=== PATIENT | female | born 1950 | race Caucasian/White ===

== ENCOUNTER 2023-06-26 20:03 | Emergency (ER) | payer MEDICARE, SELFPAY ==
[2023-06-26 20:19] VITALS: BP 165/87
[2023-06-26] MEDS: NORCO 5/325 1 TABLET PO (21:18)
[2023-06-26 21:25] LABS: % Basophils 0.7 % (0-2); % Eosinophils 0.2 % (0-6); % Immature Granulocytes 0.2 % (0-0.5); % Lymphocytes 17.2 % (20.5-51.1); % Monocytes 1.3 % (1.7-9.3); % Neutrophils 80.4 % (42.2-75.2); Absolute Lymphocytes 0.9 10^3/uL (1.2-3.4); Absolute Monocytes 0.1 10^3/uL (0.1-0.6); Absolute Neutrophils 4.4 10^3/uL (1.4-6.5); Hematocrit 39.8 % (37.0-47.0); Hemoglobin 13.8 g/dL (12.0-16.0); Mean Corp Hgb Conc. 34.7 g/dL (33.0-37.0); Mean Corpuscular Hgb 31.7 pg (27.0-31.0); Mean Corpuscular Volume 91.3 fL (81.0-99.0); Nucleated Red Blood Cells % 0 %; Platelet Count 249 10^3/uL (130-400); Red Blood Cell Count 4.36 10^6/uL (4.20-5.40); Red Cell Dist. Width 12.8 % (11.5-14.5); White Blood Cell Count 5.5 10^3/uL (4.8-10.8)
[2023-06-26 21:48] LABS: Blood Urea Nitrogen 31 mg/dl (7-17); Calcium 9.8 mg/dl (8.4-10.2); Carbon Dioxide 23 mmol/L (22-30); Chloride 104 mmol/L (98-107); Glucose 161 mg/dl (70-99); Sodium 133 mmol/L (135-145); eGFR > 60.00
[2023-06-26 22:38] LABS: ALT (SGPT) 35 U/L (0-35); AST (SGOT) 34 U/L (14-36); Albumin 4.5 g/dl (3.5-5.0); Alkaline Phosphatase 103 U/L (38-126); Blood Urea Nitrogen 29 mg/dl (7-17); Calcium 9.8 mg/dl (8.4-10.2); Carbon Dioxide 24 mmol/L (22-30); Chloride 104 mmol/L (98-107); Glucose 151 mg/dl (70-99); Potassium 4.6 mmol/L (3.5-5.1); Sodium 131 mmol/L (135-145); Total Bilirubin 0.4 mg/dl (0.2-1.3); Total Protein 7.2 g/dl (6.3-8.2); eGFR > 60.00
--- NOTE | 2023-06-26 23:07 | ED.MUSCINJ ---
HPI-Injury
General
Chief Complaint: Musculo-Skeletal Complaint
Source: patient
Exam Limitations: none
Time Seen by Provider: 06/26/23 20:31
Nursing documentation reviewed up to this point in time: agreed with
Travel History
Have you had any contact with someone who has COVID-19?: No
Do you have any symptoms of coronavirus? Fever > 100 degrees, chills, cough, shortness of breath, sore throat, loss of taste or smell, muscle aches, or headache?: No
History of Present Illness-Injury
Is this injury a work related problem?: No
Is pt an associate of [facility]?: No
Initial Injury comments:
Patient to ED with complaint of right medial ankle pain. SHe fx her ankle in Dec requiring ORIF. States over the past few weeks the pain is worsening. Denies fever/chills. Reports ankle looks red at times, feels hot. Brought to ED by family for
eval.
Past History
Past History
ED Past Medical History: None and Other (Previous Lyme's disease)
ED Past Surgical History: None
Social History
Tobacco: Non-smoker
Alcohol: None
Family History
Family History: Negative Diabetes
Review of Systems
Review of Systems
Allergies reviewed?: Yes
All Other Systems: ROS reviewed and negative except as documented in HPI and ROS
Constitutional: Reports no symptoms
EENT: Reports no symptoms
Respiratory: Reports no symptoms
Cardiac: Reports no symptoms
ABD/GI: Reports no symptoms
Musculoskeletal: Reports joint pain (Right medial ankle pain)
Skin: Reports no symptoms
Neurological: Reports no symptoms
Psychiatric: Reports no symptoms
Musculoskeletal Injury Exam
Musculoskeletal Injury Exam
Right Medial Ankle:
Pain with Movement?: Moderate
Tender to palpation?: Moderate
Soft tissue swelling?: None
External deformity and angulation?: None
Joint effusion?: None
Contusion?: None
Hematoma-local bleeding into tissue?: None
Strain- Sprain- Tear (Connective tissue injury)?: None
Crepitus with movement?: No
Joint instability?: No
Malalignment/deformity?: No
Range of motion: Full
Distal skin color and temperature: normal-warm & good color
Capillary Refill: normal
Normal distal neurovascular exam?: Yes
Peripheral Pulses: posterior tibial (right): 3+ and dorsalis pedis (right): 3+
Phy Exam
General Physical Exam
General Presentation: well appearing and no apparent distress
General age: appears stated age
General Skin: warm and dry
General Habitus: normal
General Mental: alert
Musculoskeletal Exam
Musculoskeletal Exam: full ROM, neuro vasc intact and other (No erythema or swelling of foot/ankle)
Skin Exam
Skin Exam: normal color, warm/dry and no rash
Psychiatric Exam
Psychiatric Exam: normal mood/affect
Injury Course
Orders/Labs/Results
Orders:
Orders
06/26/23 21:01
Ankle, Right 3 view CR [CR Ankle - Right Min 3 Views *] Urgent
Comment:
Reason For Exam: medial pain
Periph Venous Lwr Ext Rt US [US Periph Venous LOWER Ext RT] Urgent
Comment:
Reason For Exam: ankle to calf pain
06/26/23 21:03
Hydrocodone 5/APAP 325 [[place] 5/325] 1 tablet PO NOW STA
06/26/23 21:20
Basic Metabolic Panel Urgent
Complete Blood Count/With Diff Urgent
06/26/23 22:19
Comprehensive Metabolic Panel Urgent
Abnormal Lab Results
06/26/23 06/26/23
21:20 22:19
MCH 31.7 H pg
(27.0-31.0)
Absolute Lymphs (auto) 0.9 L 10^3/uL
(1.2-3.4)
Neutrophils % 80.4 H %
(42.2-75.2)
Lymphocytes % 17.2 L %
(20.5-51.1)
Monocytes % 1.3 L %
(1.7-9.3)
Sodium 133 L mmol/L 131 L mmol/L
(135-145) (135-145)
BUN 31 H mg/dl 29 H mg/dl
(7-17) (7-17)
Glucose 161 H mg/dl 151 H mg/dl
(70-99) (70-99)
06/26/23 21:20
06/26/23 22:19
*Radiology
Radiology exam reviewed: radiology read reviewed
*Pulse Oximetry
Patient hypoxic: no
*Critical Care Note
Total Time (30-74mins, 75-104mins- exclusive of procedures): Not Applicable
ED Attending Note
-
Portions of this chart may have been created with voice recognition software.� Occasional wrong word or��sound alike� substitutions may have occurred due to the inherent limitations of voice recognition software.
Discharge Plan
Departure
Patient Disposition: Home (Routine Discharge)
Date of Disposition: 06/26/23
Time of Disposition: 22:57
Patient with high blood pressure during this ER visit?: No
Condition: Good
Covid-19: Not Applicable
Discharge Problem:
Ankle pain
Instructions: Muscle and Bone Pain (DC), Ibuprofen, Using Cold for Pain
Prescriptions:
New
hydrocodone-acetaminophen 5-325 mg tablet
1 tab PO Q4H PRN (Reason: Pain) Qty: 10 0RF
No Action
ascorbic acid (vitamin C) [Vitamin C] 1,000 MG tablet
1,000 mg PO DAILY
cyanocobalamin (vitamin B-12) 1,000 MCG tablet
1,000 mcg PO DAILY
docosahexaenoic acid-epa 1 EACH capsule
1,200 mg PO DAILY
paroxetine HCl 30 MG tablet
30 mg PO DAILY
zolpidem 10 MG tablet
10 mg PO HS
calcium carbonate-vitamin D3 [Calcium 600 + D(3)] 1 EACH tablet
1 ea PO DAILY
docusate sodium 100 MG capsule
200 mg PO DAILY
atorvastatin 40 MG tablet
40 mg PO QPM Qty: 30 0RF
aspirin 81 MG tablet,chewable
81 mg PO DAILY 0RF
Referrals:
Joaquina Perez MD [Family Provider] -
Eliseo Champion MD [Active] - Keep scheduled appt
Interventions
Interventions:
*Risk Screen - Suicide Last Done: 06/26/23 20:19
*General Assessment Last Done: 06/26/23 20:19
*Neglect/Abuse Screening Last Done: 06/26/23 20:19
Discharge Date and Time
Print Language: KYRGYZ
== END 2023-06-26 23:39 | disposition home or self-care (01) ==
LOC: EMR 20:03
PROVIDERS: Nurse Practitioner; EMERGENCY PHYSICIAN Emergency Medicine; FAMILY PHYSICIAN Internal Medicine
DX: M25.571 Pain in right ankle and joints of right foot (principal); R22.41 Localized swelling, mass and lump, right lower limb
CPT/HCPCS: 99285; 73610; 80048; 80053; 85025; 93971

== ENCOUNTER 2023-10-10 11:42 | Emergency (ER) | payer MEDICARE, SELFPAY ==
[2023-10-10 11:45] VITALS: BP 147/83
[2023-10-10 11:55] VITALS: BMI 38.0
[2023-10-10 12:01] VITALS: BP 150/68
[2023-10-10 12:05] VITALS: BP 150/67
--- NOTE | 2023-10-10 12:08 | ED.GENMED ---
History of Present Illness
General
Chief Complaint: Abdominal Pain
Source: patient and family (son)
Time Seen by Provider: 10/10/23 11:57
History of Present Illness
History of Present Illness:
73-year-old female presents to the emergency room complaining of abdominal pain. Patient noted some mild abdominal pain on and off for the past month or so. However the pain would not last long it would go away completely. However over the past 3
days she has had pain that has been constant and increasing in severity. She denies nausea or vomiting. She has had some loose stools. She denies any blood or mucus in the stool. No fever or chills. Patient has history of a appendectomy at the
age of 15. She had some sort of hernia repair as an infant. She is also had a .
Past History
Past History
ED Past Medical History: None and Other (Previous Lyme's disease)
ED Past Surgical History: None
Social History
Tobacco: Non-smoker
Alcohol: None
Family History
Family History: Negative Diabetes
Phy Exam
Physical Exam
Physical Exam:
General: Awake, Alert, Oriented X3. Appears uncomfortable
Vitals: unremarkable
Head: Atraumatic
Eyes: Pupils equal, EOMI
Throat: Airway intact, no exudates
Neck: Trachea midline
Lungs: Clear and equal b/l
Heart: Regular rate, no murmurs
Abd: Soft, tender to palpation bilateral lower abdominal quadrants, No pulsatile mass
Neuro: Nonfocal
Skin: Warm, dry, no rash
Extremities: pulses equal b/l, no edema
Course
Orders/Labs/Results
Orders:
Orders
10/10/23 11:59
Basic Metabolic Panel Urgent
Complete Blood Count/With Diff Urgent
Lipase Urgent
Urinalysis Reflex To Culture Urgent
Date Specimen was Collected: 10/10/23
Time Specimen was Collected: 11:53
10/10/23 12:07
CT Abd/Pel (IV only)-DH only Urgent
Comment:
Reason For Exam: lower abd pain
0.9% Sodium Chloride 1000 ml [Nss] 1,000 ml IV BOLUS
HYDROmorphone [Dilaudid] 1 mg IV NOW STA
Ondansetron Injectable [Zofran] 4 mg IV NOW STA
10/10/23 15:18
LevoFLOXacin [Levaquin] 750 mg PO NOW STA
MetroNIDAZOLE [Flagyl] 500 mg PO NOW STA
Abnormal Lab Results
10/10/23
11:59
MCH 31.6 H pg
(27.0-31.0)
Absolute Neuts (auto) 6.9 H 10^3/uL
(1.4-6.5)
Absolute Lymphs (auto) 1.0 L 10^3/uL
(1.2-3.4)
Neutrophils % 80.4 H %
(42.2-75.2)
Lymphocytes % 11.3 L %
(20.5-51.1)
BUN 28 H mg/dl
(7-17)
10/10/23 11:59
10/10/23 11:59
Vital Signs
Initial and Last Documented VS:
Initial Vital Signs
Temp Pulse Resp BP Pulse Ox
99.1 F 86 18 147/83 100
10/10/23 11:45 10/10/23 11:45 10/10/23 11:45 10/10/23 11:45 10/10/23 11:45
Last Documented Vital Signs
Temp Pulse Resp BP Pulse Ox
99.1 F 82 16 120/60 94
10/10/23 11:45 10/10/23 14:00 10/10/23 14:00 10/10/23 15:00 10/10/23 15:00
MDM/Problems Addressed
Differential Diagnosis Includes:
diverticulitis, ibs, uti
MDM/Problems Addressed:
Patient presents with abdominal pain progressing for the past month. CT shows no acute abnormality. He will treat for presumptive diverticulitis. Recommend strongly she follow-up with gastroenterology. Contact information provided.
*Radiology
Radiology exam reviewed: radiology read reviewed
*Pulse Oximetry
Patient hypoxic: no
*Critical Care Note
Total Time (30-74mins, 75-104mins- exclusive of procedures): Not Applicable
ED Attending Note
-
Portions of this chart may have been created with voice recognition software.� Occasional wrong word or��sound alike� substitutions may have occurred due to the inherent limitations of voice recognition software.
Discharge Plan
Departure
Patient Disposition: Home (Routine Discharge)
Date of Disposition: 10/10/23
Time of Disposition: 15:19
Patient with high blood pressure during this ER visit?: No
Condition: Good
Discharge Problem:
Abdominal pain, Diverticulitis
Instructions: Diverticulitis (DC), Abdominal Pain
Prescriptions:
New
levofloxacin 750 mg tablet
750 mg PO DAILY 7 Days Qty: 7 0RF
metronidazole 500 mg tablet
500 mg PO TID Qty: 21 0RF
No Action
ascorbic acid (vitamin C) [Vitamin C] 1,000 MG tablet
1,000 mg PO DAILY
cyanocobalamin (vitamin B-12) 1,000 MCG tablet
1,000 mcg PO DAILY
docosahexaenoic acid-epa 1 EACH capsule
1,200 mg PO DAILY
paroxetine HCl 30 MG tablet
30 mg PO DAILY
zolpidem 10 MG tablet
10 mg PO HS
calcium carbonate-vitamin D3 [Calcium 600 + D(3)] 1 EACH tablet
1 ea PO DAILY
docusate sodium 100 MG capsule
200 mg PO DAILY
atorvastatin 40 MG tablet
40 mg PO QPM Qty: 30 0RF
aspirin 81 MG tablet,chewable
81 mg PO DAILY 0RF
hydrocodone-acetaminophen 5-325 mg tablet
1 tab PO Q4H PRN (Reason: Pain) Qty: 10 0RF
Referrals:
Joaquina Perez MD [Family Provider] -
Josefa Lu MD [Active] -
Interventions
Interventions:
*Risk Screen - Suicide Last Done: 10/10/23 11:45
*General Assessment Last Done: 10/10/23 11:45
*Neglect/Abuse Screening Last Done: 10/10/23 11:45
ED- Fall Risk Assessment Last Done: 10/10/23 12:05
*ED COVID-19 Vaccine History Last Done: 10/10/23 16:23
*Nursing Disposition Last Done: 10/10/23 16:23
QQ-Dpzflc-Qapquafccs Assessment Last Done: 10/10/23 12:06
Discharge Date and Time
Discharge Date/Time: 10/10/23 16:00
Print Language: FRISIAN
[2023-10-10 12:14] LABS: Urine Albumin Negative (Neg - Trace); Urine Bilirubin Negative (Negative); Urine Character Clear (Clear); Urine Color Yellow; Urine Glucose Negative (Negative); Urine Ketone Negative (Negative); Urine Leukocyte Negative (Negative); Urine Nitrite Negative (Negative); Urine Occult Blood Negative (Negative); Urine Urobilinogen Negative (Neg - 1+)
[2023-10-10 12:18] LABS: % Basophils 0.8 % (0-2); % Eosinophils 1.3 % (0-6); % Immature Granulocytes 0.2 % (0-0.5); % Lymphocytes 11.3 % (20.5-51.1); % Neutrophils 80.4 % (42.2-75.2); Absolute Basophils 0.1 10^3/uL (0-0.2); Absolute Eosinophils 0.1 10^3/uL (0-0.7); Absolute Monocytes 0.5 10^3/uL (0.1-0.6); Absolute Neutrophils 6.9 10^3/uL (1.4-6.5); Hematocrit 42.1 % (37.0-47.0); Hemoglobin 14.2 g/dL (12.0-16.0); Mean Corp Hgb Conc. 33.7 g/dL (33.0-37.0); Mean Corpuscular Hgb 31.6 pg (27.0-31.0); Mean Corpuscular Volume 93.8 fL (81.0-99.0); Mean Platelet Volume 10.3 fL (7.4-10.4); Nucleated Red Blood Cells % 0 %; Platelet Count 243 10^3/uL (130-400); Red Blood Cell Count 4.49 10^6/uL (4.20-5.40); Red Cell Dist. Width 13.1 % (11.5-14.5); White Blood Cell Count 8.6 10^3/uL (4.8-10.8)
[2023-10-10] MEDS: DILAUDID 1 MG IV (12:21)
[2023-10-10] MEDS: ZOFRAN 4 MG IV (12:21)
[2023-10-10] MEDS: NSS 1000 IV (12:22)
[2023-10-10 12:42] LABS: Blood Urea Nitrogen 28 mg/dl (7-17); Calcium 9.3 mg/dl (8.4-10.2); Carbon Dioxide 27 mmol/L (22-30); Chloride 105 mmol/L (98-107); Estimated Creatinine Clearance 94 ml/min; Glucose 94 mg/dl (70-99); Lipase 74 U/L (23-300); Sodium 138 mmol/L (135-145); eGFR > 60.00
[2023-10-10 13:00] VITALS: BP 141/78
[2023-10-10 14:04] VITALS: BP 132/66
[2023-10-10 15:00] VITALS: BP 120/60
[2023-10-10] MEDS: LEVAQUIN 750 MG PO (15:39)
[2023-10-10] MEDS: FLAGYL 500 MG PO (15:39)
== END 2023-10-10 16:00 | disposition home or self-care (01) ==
LOC: EMR 11:42
PROVIDERS: EMERGENCY PHYSICIAN Emergency Medicine; FAMILY PHYSICIAN Internal Medicine
DX: K57.92 Diverticulitis of intestine, part unspecified, without perforation or abscess without bleeding (principal); R10.9 Unspecified abdominal pain
CPT/HCPCS: 99285; 96374; 96375; 96361; 74177; 80048; 81003; 83690; 85025; Q9967

== ENCOUNTER 2023-10-11 02:26 | Observation (INO) | payer MEDICARE, SELFPAY ==
[2023-10-10 22:44] VITALS: BP 144/75
--- NOTE | 2023-10-10 22:55 | ED.GENMED ---
History of Present Illness
General
Chief Complaint: Abdominal Pain
Time Seen by Provider: 10/10/23 22:55
History of Present Illness
History of Present Illness:
HPI: The patient was seen here earlier in the day for abdominal pain with nausea and vomiting. She returns due to intractable vomiting. The pain is primarily in the lower abdomen. She does not have pain in the upper abdomen. She has been having
abdominal pain for the last few weeks. More recently she has been having vomiting and earlier in the day she had 4 episodes of diarrhea. She currently does not have diarrhea. She says that the pain is now 'all over'. She was prescribed
Levaquin/Flagyl and was given an oral dose prior to discharge but did not get the medication filled.
EXAM:
GENERAL: The patient appears somewhat generally weak and debilitated and in mild distress
HEENT: Moist oral mucosa
CARDIOVASCULAR: No murmurs, normal heart rate, regular rhythm, No chest wall tenderness
PULMONARY: No respiratory distress, breath sounds are clear and equal
ABDOMEN: Soft with no peritoneal signs, no upper tenderness, mild lower tenderness
NEUROLOGIC: Exc good ellent strength all extremities, no coordination deficits
PSYCHIATRIC: Appropriate mental status, normal insight and judgement
EXTREMITIES: Nontender, no edema, moves all extremities equally
SKIN: No rash, no lesions
TIME OF INITIAL ENCOUNTER: 11 PM
NUMBER AND COMPLEXITY OF PROBLEMS ADDRESSED AT THE ENCOUNTER
� Chronic conditions affecting care: Has had stomach ulcer, migraine, right bimalleolar ankle fracture ORIF 2023
� Acute Exacerbation and/or Progression of Chronic Illness: This is an acute problem
� Differential Diagnosis includes: Intestinal spasm, IBS, CT imaging performed earlier in the day reviewed and was unremarkable, viral syndrome, records indicate that she had an appendectomy at the age of 15
AMOUNT AND/OR COMPLEXITY OF DATA TO BE REVIEWED AND ANALYZED
� I performed an independent evaluation of and my interpretation is:
EKG:
CT: I reviewed the CT from earlier today
X-rays:
Laboratory Studies: White count is unremarkable, chemistries unremarkable, COVID-negative
Other:
� Review of other/old records: I reviewed the CAT scan performed earlier today that did not show any clear sign of cause for her pain. Lab work was also unremarkable.
� Clinical information was obtained by an independent historian: I spoke to family at bedside
� Prescriptions/Medications Considered but not given: Considered/offered narcotic analgesia however the patient does not necessarily want narcotics but is rather more interested in determining why she is having the pain
� Further testing considered but not performed: Consider repeating CT imaging however she had CT imaging 12 hours prior and she would not be able to tolerate oral contrast at this time
RISK OF COMPLICATIONS AND/OR MORBIDITY OR MORTALITY OF PATIENT MANAGEMENT
� Social determinants of health affecting care: Lives at home
� Discussion with other providers:
� Escalation of care including admission/observation vs risk of discharge considered: I reviewed the notes from earlier today. The CT imaging was relatively unremarkable but it appears the patient was started on Levaquin and
Flagyl presumably for the possibly of diverticulitis (not confirmed on CT). She was given Zofran and Dilaudid during her earlier stay in the ED today. Will give IV fluids and try Toradol this time for pain. On reassessment at 12 PM, the patient
still does not feel well. White count again is normal. Chemistries are unremarkable. COVID test negative. She was given IV fluids. She also reports some photophobia. She states she has had 1 migraine in the past when she was a teenager.
Trying Reglan/Benadryl. Some of her lower abdominal pain radiates into the thighs therefore musculoskeletal etiology is a possibility however this would not explain the headache.
Past History
Past History
ED Past Medical History: None and Other (Previous Lyme's disease)
ED Past Surgical History: None
Social History
Tobacco: Non-smoker
Alcohol: None
Family History
Family History: Negative Diabetes
Phy Exam
Physical Exam
Physical Exam:
See HPI
Course
Orders/Labs/Results
Orders:
Orders
10/10/23 23:03
0.9% Sodium Chloride 1000 ml [Nss] 1,000 ml IV BOLUS
Famotidine [Pepcid] 20 mg IV NOW STA
Ketorolac [Toradol] 15 mg IV NOW STA
Ondansetron Injectable [Zofran] 4 mg IV NOW STA
10/10/23 23:42
Complete Blood Count/With Diff Urgent
Comprehensive Metabolic Panel Urgent
Lipase Urgent
10/11/23 00:09
Diphenhydramine [Benadryl] 25 mg IV NOW STA
Metoclopramide [Reglan] 10 mg IV NOW STA
10/11/23 00:22
COVID-19 Antigen Urgent
Source: Nasal Swab
10/11/23 01:47
Admit/Transfer Patient As Directed
Co-Sign Provider:
Level of Care: Observation services
Assign to:: Medical/Surgical
Physician / Group: Iggy
Diagnosis: Abd Pain, Diarrhea
PRN Pain Medication Management As Directed
May give lesser potent ordered pain med per pt: Yes
preference::
Protocol:: Medication orders for pain may be administered in a
manner that supports deferring to patient preference
when the pt is:
- Requesting an ordered lesser potent pain medication.
Least to most potent pain medications are defined
as: acetaminophen < NSAID < tramadol < opioids
(morphine, oxycodone, hydromorphone).
- Requesting a lesser dose of the same medication IF
ORDERED.
- Requesting a less intrusive route of administration
if both routes are prescribed by the provider (PO <
IV).
10/11/23 01:49
Code Status As Directed
Resuscitation Status: Full Code
Abnormal Lab Results
10/10/23
23:42
RBC 3.95 L 10^6/uL
(4.20-5.40)
Hct 36.3 L %
(37.0-47.0)
MCH 32.2 H pg
(27.0-31.0)
Absolute Lymphs (auto) 0.8 L 10^3/uL
(1.2-3.4)
Neutrophils % 81.0 H %
(42.2-75.2)
Lymphocytes % 11.6 L %
(20.5-51.1)
Sodium 134 L mmol/L
(135-145)
BUN 18 H mg/dl
(7-17)
Glucose 120 H mg/dl
(70-99)
Total Protein 6.2 L g/dl
(6.3-8.2)
10/10/23 23:42
10/10/23 23:42
Vital Signs
Initial and Last Documented VS:
Initial Vital Signs
Temp Pulse Resp BP Pulse Ox
97.9 F 78 20 144/75 98
10/10/23 22:44 10/10/23 22:44 10/10/23 22:44 10/10/23 22:44 10/10/23 22:44
Last Documented Vital Signs
Temp Pulse Resp BP Pulse Ox
97.9 F 76 16 113/50 94
10/10/23 22:44 10/11/23 00:03 10/11/23 00:03 10/11/23 01:00 10/11/23 01:15
*Critical Care Note
Total Time (30-74mins, 75-104mins- exclusive of procedures): Not Applicable
ED Attending Note
-
Portions of this chart may have been created with voice recognition software.� Occasional wrong word or��sound alike� substitutions may have occurred due to the inherent limitations of voice recognition software.
Discharge Plan
Departure
Patient Disposition: Admit
Date of Disposition: 10/11/23
Time of Disposition: 01:32
Presentation/result/management discussed w/ accepting MD/DO: Hospitalist
Patient with high blood pressure during this ER visit?: Yes
Discharge Problem:
Intractable abdominal pain
Prescriptions:
No Action
ascorbic acid (vitamin C) [Vitamin C] 1,000 MG tablet
1,000 mg PO DAILY
cyanocobalamin (vitamin B-12) 1,000 MCG tablet
1,000 mcg PO DAILY
docosahexaenoic acid-epa 1 EACH capsule
1,200 mg PO DAILY
zolpidem 10 MG tablet
10 mg PO HS
calcium carbonate-vitamin D3 [Calcium 600 + D(3)] 1 EACH tablet
1 ea PO DAILY
atorvastatin 40 MG tablet
40 mg PO QPM Qty: 30 0RF
aspirin 81 MG tablet,chewable
81 mg PO DAILY 0RF
lamotrigine 100 mg Tablet
100 mg PO DAILY
Referrals:
UNKNOWN - PT DOES,NOT KNOW [Family Provider] -
Interventions
Interventions:
*Risk Screen - Suicide Last Done: 10/10/23 22:44
*General Assessment Last Done: 10/10/23 22:44
*Neglect/Abuse Screening Last Done: 10/10/23 22:44
ED- Fall Risk Assessment Last Done: 10/10/23 22:44
*ED COVID-19 Vaccine History Last Done: 10/10/23 22:44
AR-Taiwef-Dyutlnrxdk Assessment Last Done: 10/10/23 23:30
Discharge Date and Time
Print Language: JAPANESE
[2023-10-10 23:23] VITALS: BMI 38.1
[2023-10-10 23:50] LABS: % Basophils 0.6 % (0-2); % Eosinophils 0.1 % (0-6); % Immature Granulocytes 0.3 % (0-0.5); % Lymphocytes 11.6 % (20.5-51.1); % Monocytes 6.4 % (1.7-9.3); Absolute Lymphocytes 0.8 10^3/uL (1.2-3.4); Absolute Monocytes 0.5 10^3/uL (0.1-0.6); Absolute Neutrophils 5.8 10^3/uL (1.4-6.5); Hematocrit 36.3 % (37.0-47.0); Hemoglobin 12.7 g/dL (12.0-16.0); Mean Corpuscular Hgb 32.2 pg (27.0-31.0); Mean Corpuscular Volume 91.9 fL (81.0-99.0); Mean Platelet Volume 10.3 fL (7.4-10.4); Nucleated Red Blood Cells % 0 %; Platelet Count 221 10^3/uL (130-400); Red Blood Cell Count 3.95 10^6/uL (4.20-5.40); Red Cell Dist. Width 12.9 % (11.5-14.5); White Blood Cell Count 7.2 10^3/uL (4.8-10.8)
[2023-10-10] MEDS: NSS 1000 IV (23:52)
[2023-10-10] MEDS: TORADOL 15 MG IV (23:53)
[2023-10-10] MEDS: PEPCID 20 MG IV (23:53)
[2023-10-10] MEDS: ZOFRAN 4 MG IV (23:54)
[2023-10-11] VITALS (10 sets, daily range): BP systolic 108–152; BP diastolic 50–76; PULSE 74–80; BMI 37.7
[2023-10-11 00:11] LABS: ALT (SGPT) 25 U/L (0-35); AST (SGOT) 30 U/L (14-36); Albumin 3.9 g/dl (3.5-5.0); Alkaline Phosphatase 72 U/L (38-126); Blood Urea Nitrogen 18 mg/dl (7-17); Calcium 8.7 mg/dl (8.4-10.2); Carbon Dioxide 24 mmol/L (22-30); Chloride 105 mmol/L (98-107); Estimated Creatinine Clearance 110 ml/min; Glucose 120 mg/dl (70-99); Lipase 33 U/L (23-300); Potassium 4.4 mmol/L (3.5-5.1); Sodium 134 mmol/L (135-145); Total Bilirubin 0.9 mg/dl (0.2-1.3); Total Protein 6.2 g/dl (6.3-8.2); eGFR > 60.00
[2023-10-11] MEDS: REGLAN 10 MG IV (00:20)
[2023-10-11] MEDS: BENADRYL 25 MG IV (00:20)
[2023-10-11 00:47] LABS: COVID-19 Antigen Negative (Negative)
--- NOTE | 2023-10-11 01:57 | HPS.HSE ---
Family Physician
-
Family Physician: NOT KNOW UNKNOWN - PT DOES
Chief Complaint
-
Abd Pain / Diarrhea
History of Present Illness
Patient is a 73y F with PMH significant for depression who presents to ED complaining of abdominal pain and diarrhea. History obtained from patient and family at the bedside. Patient states that she started with diarrhea about 3 1/2 weeks ago.
She reports having up to 10 stools per day described as loose or liquid. No bloody or black stools. Patient notes that she was changed from Paxil to Lamictal about 4 weeks ago.
Patient notes that the frequency of stools is variable and seems to be decreased with decreased PO intake. She had 4 loose BMs this AM however.
Over the past 2 weeks, her symptoms have worsened to include lower abdominal / suprapubic pain, low back pain and pain radiating into the thighs bilaterally.
She has had rare N/V - one episode 2 days ago and one episode this evening.
No fevers or chills. She reports decreased volume of urination, but no symptoms of frequency, urgency or dysuria.
Patient was seen by her PCP who suspected that the diarrhea may be due to the recently initiated Lamictal. It was recommended that she taper off of this, and patient has started to do so - currently on 50mg daily.
Patient continued to have symptoms however and presented to the ED earlier today for evaluation.
Work-up including labs, UA and CT A/P was essentially unremarkable. Patient was treated with abx for suspected diverticulitis and discharged.
Patient notes that she developed headache and N/V x 1 after return home. Her abdominal pain and back pain also worsened - prompting her to return to the ED for further evaluation.
Patient's son indicates that he was recently found to have lumbar disc herniation with apparently identical presentation - including pain pattern and diarrhea.
Medical History
Past Medical History
Past Medical History: Reports Other
Additional Past Medical History:
Anxiety / Depression
Obesity
ASCVD / TIA
Past Surgical History: Reports Other
Additional Past Surgical History:
Appendectomy
Hernia repair
T&A
Right Ankle ORIF
Right TKA
Social History
Tobacco: Non-smoker
Alcohol: None
Drug: None
Family History
Family History: Not pertinent
Allergies / Home Medications
Allergies reflects when Allergies were last updated in [facility].
Home Medications with original date entered in [facility]
Allergy/Medication List:
Allergies
Allergy/AdvReac Type Severity Reaction Status Date / Time
Penicillins Allergy Unknown Verified 10/10/23 22:44
Home Medications
ascorbic acid (vitamin C) 1,000 mg tablet (Vitamin C) 1,000 mg PO DAILY 06/01/14
cyanocobalamin (vitamin B-12) 1,000 mcg tablet 1,000 mcg PO DAILY 06/01/14
docosahexaenoic acid (dha)-epa 120 mg-180 mg capsule 1,200 mg PO DAILY 06/01/14
calcium carbonate 600 mg-vitamin D3 10 mcg (400 unit) tablet (Calcium 600 + D(3)) 1 ea PO DAILY 01/07/17
zolpidem 10 mg tablet 10 mg PO HS 01/07/17
aspirin 81 mg chewable tablet 81 mg PO DAILY 01/09/17
atorvastatin 40 mg tablet 40 mg PO QPM ##30 01/09/17
lamotrigine 100 mg tablet 100 mg PO DAILY 10/10/23
Review of Systems
-
History Source: Patient and Family
A 12 point ROS was completed and negative except as noted: Yes
Constitutional: Reports Fatigue; Denies Fever or Chills
EENT: Denies Sore Throat
Respiratory: Denies Cough or Trouble Breathing
Cardiac: Denies Chest Pain or Palpitations
Abdomen/GI: Reports Abdominal Pain, Nausea, Vomiting and Diarrhea; Denies Bloody Stools or Black Stools
: Reports Other (Decreased volume of urination.); Denies Dysuria, Frequency or Flank Pain
Musculoskeletal: Reports Joint Pain (L ankle discomfort.); Denies Edema
Neurological: Reports Headache; Denies Dizzy, Weakness or Numbness
Psych: Reports Depression and Anxiety
Physical Exam
Vital Signs
Vital Signs
Temp Pulse Resp BP Pulse Ox
97.9 F 76 16 113/50 94
10/10/23 22:44 10/11/23 00:03 10/11/23 00:03 10/11/23 01:00 10/11/23 01:15
Physical Exam
General: Other (73y F in mild distress due to pain.)
HEENT: Other (Dry MM. Thick neck.)
Respiratory: Clear; No Wheezes, Rales or Rhonchi
Cardiac: S1/S2 and Regular Rhythm; No Murmur
GI: Soft, Non Distended, Normal Bowel Sounds and Other (Lower abdominal tenderness even with light palpation. No rebound. Pos voluntary guarding.)
Genito-urinary: No costovertebral tender
Musculoskeletal: No Clubbing, No Cyanosis and No Edema
Neuro: AO x 3 and Nonfocal/grossly intact
Laboratory Results
-
10/10/23 23:42
10/10/23 23:42
Laboratory Results
Total Bilirubin 0.9 mg/dl (0.2-1.3) 10/10/23 23:42
AST 30 U/L (14-36) 10/10/23 23:42
ALT 25 U/L (0-35) 10/10/23 23:42
Alkaline Phosphatase 72 U/L (38-126) 10/10/23 23:42
Lipase 33 U/L (23-300) 10/10/23 23:42
Impression/Plan
-
A/P: Patient is a 73y F with PMH significant for depression who presents to ED complaining of abdominal pain and diarrhea.
Diarrhea
- Observe overnight for further evaluation and treatment.
- Labs and imaging done during earlier visit were unremarkable.
- Med-induced effect seems most likely given timing.
- Afebrile, non-toxic appearing. Patient states that she never eats lunch meats.
- Hold Lamictal. If drug-induced, may takes several weeks to fully resolve.
- Check stool studies.
- IVF support.
- Follow for any clinical changes.
- Observe off of any abx given data thus far.
- GI evaluation for additional recommendations.
Abdominal Pain / Back Pain
- Pain pattern / distribution and sensitivity on exam to even light touch potentially c/w radicular process.
- Potentially unrelated to diarrhea at all as pain is new compared to stool changes.
- Trial of gabapentin and follow for any improvement in pain.
- Check MR L-spine for any culprit lesions.
- PT / OT evaluations.
- ? related to ongoing diarrhea x 3 weeks - though no significant inflammatory changes or other abnormalities noted on CT imaging.
Anxiety / Depression
- Previously on Paxil with incomplete control of symptoms.
- Changed to Lamictal about one month ago and diarrhea began shortly thereafter.
- Has decreased Lamictal dose to 50mg for the past week.
- Will hold for now and continue to follow above symptoms.
- Follow-up with PCP / Psych as an outpatient for additional med recommendations.
DVT Prophylaxis: SCDs
Code Status: Full
[2023-10-11] MEDS: NSS 1000 IV ×3 (03:20→20:14)
--- NOTE | 2023-10-11 05:07 | PTCARENOTE ---
Received patient from ED via stretcher; M/S orders. VSS, c/o 10/11 lower abdominal pain but does not want pain medication. #22 Rt hand IV w/ IVF infusing at 125ml/hr. Pt admitted for diarrhea and abdominal pain. Enhanced precautions in place. Stool
specimen ordered but patient has not had bowel movement since her second visit to ED 10/09. PMH and medications reviewed by this RN and patient. Plan of care discussed. Patient oriented to room. Call montoya within reach.
[2023-10-11] MEDS: LOW STRENGTH ASPIRIN 81 MG PO (08:47)
[2023-10-11] MEDS: NEURONTIN 100 MG PO ×3 (08:47→21:43)
[2023-10-11] MEDS: DILAUDID 0.5 MG IV ×3 (08:57→17:46)
[2023-10-11 09:15] LABS: Hematocrit 35.8 % (37.0-47.0); Hemoglobin 12.2 g/dL (12.0-16.0); Mean Corp Hgb Conc. 34.1 g/dL (33.0-37.0); Mean Corpuscular Hgb 32.4 pg (27.0-31.0); Mean Platelet Volume 10.7 fL (7.4-10.4); Platelet Count 192 10^3/uL (130-400); Red Blood Cell Count 3.77 10^6/uL (4.20-5.40); Red Cell Dist. Width 13.1 % (11.5-14.5)
--- NOTE | 2023-10-11 10:15 | CON.GI ---
Medical History
Chief Complaint / HPI
Chief Complaint: Abdominal pain, vomiting
History of Present Illness:
Patient is a 73yo F with PMH of depression who was readmitted to ED with lower abdominal pain, single episode of vomiting and diarrhea. Patient states that about 4 weeks ago she switched medication from Paxil to Lamictal. A few days later she
noticed loose stools which varied in frequency but would sometimes be around 10 stools per day. She has not noticed any bloody or black stools. Denies recent travel. Denies any fevers/ chills during this time. Patient's PCP associated diarrhea with
recently initiated Lamictal and started to taper her off. Her Lamictal was completely stopped earlier today and she is currently off both Paxil and Lamictal. Her last BM was yesterday 3 pm which was loose and has not had any BM since.
More recently, she has also had occasional dry heaves and one episode of vomiting (which was yesterday after initial discharge from ED). She also mentions lower abdominal/suprapubic pain which does not radiate and is not associated with eating. No
heartburn. Patient believes she has not been able to completely empty her bladder for the past 2 weeks and thinks her urine volume has decreased compared to before. Does not report any dysuria, hematuria or urgency.
Patient does not give a history of IBS, diverticulosis or Celiacs disease. Her last colonoscopy was 10 years ago (done as standard screening) which was normal.
Past Medical History
Past Medical History: CAD, Hypercholesterolemia, Psychiatric (Depression) and Other (TIA)
Past Surgical History: Appendectomy, Orthopedic (Right Ankle ORIF, Right TKA) and Other (Hernia repair, T&A, )
Social History
Tobacco: Non-Smoker
Alcohol: None
Drug: None
Family History
Family History: Other (Celiacs disease in sister)
Allergies / Home Medications
Allergy/AdvReac Type Severity Reaction Status Date / Time
Penicillins Allergy Unknown Verified 10/10/23 22:44
�Medication �Instructions �Recorded
ascorbic acid (vitamin C) 1,000 mg 1,000 mg PO DAILY Supplement 06/01/14
tablet (Vitamin C)
cyanocobalamin (vitamin B-12) 1,000 mcg PO DAILY Supplement 06/01/14
1,000 mcg tablet
docosahexaenoic acid (dha)-epa 120 1,200 mg PO DAILY Supplement 06/01/14
mg-180 mg capsule
calcium carbonate 600 mg-vitamin 1 ea PO DAILY Supplement 01/07/17
D3 10 mcg (400 unit) tablet
(Calcium 600 + D(3))
zolpidem 10 mg tablet 10 mg PO HS Sleep 01/07/17
aspirin 81 mg chewable tablet 81 mg PO DAILY 01/09/17
atorvastatin 40 mg tablet 40 mg PO QPM ##30 01/09/17
lamotrigine 100 mg tablet 100 mg PO DAILY Neurological 10/10/23
Condition
Review of Systems
-
History Source: Patient
All other systems: A 12 pt ROS was Negative except as stated above in HPI
Abdomen/GI: Reports Abdominal Pain (lower abdominal/suprapubic pain)
: Reports Difficulty Voiding
Vital Signs
Temp Pulse Resp BP Pulse Ox
98.8 F 74 16 133/69 96
10/11/23 07:40 10/11/23 07:40 10/11/23 07:40 10/11/23 07:40 10/11/23 07:40
Physical Exam
Exam
General: Well Developed and No Apparent Distress
HEENT: Normocephalic, Anicteric and Moist Mucous Membranes
Respiratory: Clear
Cardiac: S1/S2 and Regular Rhythm
GI: Soft, Non Tender, Non Distended and Normal Bowel Sounds
Neuro: Awake, Alert and Oriented
Results
WBC 5.0 10^3/uL (4.8-10.8) 10/11/23 08:39
Hgb 12.2 g/dL (12.0-16.0) 10/11/23 08:39
Hct 35.8 % (37.0-47.0) L 10/11/23 08:39
MCV 95.0 fL (81.0-99.0) 10/11/23 08:39
Plt Count 192 10^3/uL (130-400) 10/11/23 08:39
Absolute Neuts (auto) 5.8 10^3/uL (1.4-6.5) 10/10/23 23:42
Sodium 134 mmol/L (135-145) L 10/10/23 23:42
Potassium 4.4 mmol/L (3.5-5.1) 10/10/23 23:42
Chloride 105 mmol/L (98-107) 10/10/23 23:42
Carbon Dioxide 24 mmol/L (22-30) 10/10/23 23:42
BUN 18 mg/dl (7-17) H 10/10/23 23:42
Creatinine 0.6 mg/dL (0.6-1.0) 10/10/23 23:42
Calcium 8.7 mg/dl (8.4-10.2) 10/10/23 23:42
Total Bilirubin 0.9 mg/dl (0.2-1.3) 10/10/23 23:42
AST 30 U/L (14-36) 10/10/23 23:42
ALT 25 U/L (0-35) 10/10/23 23:42
Alkaline Phosphatase 72 U/L (38-126) 10/10/23 23:42
Lipase 33 U/L (23-300) 10/10/23 23:42
Diagnostic Image Results:
10/10/23: No acute intra-abdominal process identified. There is hepatic fatty infiltration. There is small hiatal hernia.
Prior GI Procedures:
EGD:
Colonoscopy:
Assessment / Plan
-
Patient is a 73yo F with PMH of depression who was readmitted to ED with lower abdominal pain, single episode of vomiting and diarrhea.
Patient is on BRAT diet. Has not had nausea/ vomiting so far. Her last BM was yesterday 3 pm which was loose and non-bloody. Has not had any BM after that. On P/E, pain seems to be predominantly suprapubic. Patient has been afebrile during stay and
is hemodynamically stable. No leukocytosis. Labs including BMP and UA are unremarkable.
Recommendations:
- Continue IVF
- Stool tests to be done if pt has BM
- Bladder scan
- Anti-emetics if needed
- No need for antibiotics at this time
-
-
Thank you for consultation and allowing me to participate in the patient's care. Please call the main line station engineer GI physician during the after hours with any questions or concerns.
[2023-10-11 10:40] LABS: Blood Urea Nitrogen 16 mg/dl (7-17); Calcium 8.1 mg/dl (8.4-10.2); Carbon Dioxide 24 mmol/L (22-30); Chloride 111 mmol/L (98-107); Estimated Creatinine Clearance 94 ml/min; Glucose 74 mg/dl (70-99); Potassium 3.8 mmol/L (3.5-5.1); Sodium 137 mmol/L (135-145); TSH Reflex To Free T4 2.56 uIU/ml (0.47-4.68); eGFR > 60.00
--- NOTE | 2023-10-11 11:05 | W.PN.HOSP.TC ---
Today's Communication/Plan
-
Continue observation, GI on board.
GI recommendations appreciated.
Assessment / Plan
Assessment / Plan
73-year-old female with PMHx significant for obesity, CVA/TIA, anxiety, depression presents to the ER for 3 and half weeks of persistent diarrheal movements-about 10 episodes a day.-Admitted for evaluation of subacute diarrhea
Plan-
Diarrhea-
Subacute, unknown etiology. Patient is nontoxic-appearing with no evidence for SIRS criteria.
Patient denies having sick contacts, being in and out of the hospitals recently, being in hot tubs, pools.
Stool culture, ova, parasites, C. difficile antigen, stool WBC, Giardia, Cryptosporidium pending.
No diarrheal episodes since overnight.
Most likely can be secondary to Lamictal, hold Lamictal.
Patient is on IV fluid support, discontinue IV fluids.
Abdominal pain, back pain-
Tenderness on palpation in bilateral lower quadrants in the abdomen.
Denies having bowel or bladder incontinence, CT abdomen-personally reviewed spine on CT abdomen, no abnormalities.
MRI lumbar spine-degenerative lumbar disc disease with moderate spinal canal stenosis and foraminal stenosis, anterolisthesis of L4 upon L5.
PT OT on board, therapy as needed.
Rule out the possibility of being related to diarrhea of in the setting of no significant changes on the CT abdomen or pelvis.
Hyperchloremia-
Likely secondary to IVF.
Anxiety, depression-
Previously on Paxil with incomplete symptom control.
Initiated Lamictal 1 month ago before the start of diarrhea.
Lamictal dose reduced-? Possible culprit for diarrhea.
Hold Lamictal, continue monitoring the patient with acute mentation changes
DVT prophylaxis-SCD
Anticipated Discharge: > 48 hours
Subjective/Interval History
-
Date of Service: October 11, 2023
Patient still complains of abdominal pain about 7/10 in the bilateral lower quadrants.
Complains of occasional nausea. Had an episode of vomiting after being admitted to the hospital but not when on the floor overnight
Did not pass bowel movement since yesterday night.
No history of bowel or bladder incontinence, rectal urgency or hesitancy, blood in the stool.
Objective Data
-
Labs:
Laboratory Results
10/10/23 10/11/23
23:42 08:39
WBC 7.2 5.0
Hgb 12.7 12.2
Hct 36.3 L 35.8 L
Plt Count 221 192
Sodium 134 L 137
Potassium 4.4 3.8
Chloride 105 111 H
Carbon Dioxide 24 24
BUN 18 H 16
Creatinine 0.6 0.7
Glucose 120 H 74
Calcium 8.7 8.1 L
Total Bilirubin 0.9
AST 30
ALT 25
Alkaline Phosphatase 72
Vital Signs:
Vital Signs
Temp Pulse Resp BP Pulse Ox
98.8 F 74 16 133/69 96
10/11/23 07:40 10/11/23 07:40 10/11/23 07:40 10/11/23 07:40 10/11/23 07:40
I&O
10/10/23 10/11/23 10/12/23
06:59 06:59 06:59
Intake Total 1000 / 1000
Balance 1000 / 1000
Review of Systems
-
History Source: Patient
Constitutional: Reports Not Done
Respiratory: Reports No Symptoms
Cardiac: Reports No Symptoms
Abdomen/GI: Reports Abdominal Pain and Nausea; Denies Vomiting or Diarrhea
Genitourinary: Reports No Symptoms
Musculoskeletal: Reports No Symptoms
Neuro: Reports No Symptoms
Endocrine: Denies Polyuria
Physical Exam
-
General: No Apparent Distress and Comfortable (Breathing on room air.)
HEENT: Normocephalic, Atraumatic and Moist Mucous Membranes
Respiratory: Clear to Auscultation; Negative Wheezes, Rales or Rhonchi
Cardiac: Regular Rhythm and S1/S2; Negative Murmur, Rub or Gallop
GI: Soft, Nondistended, Normal Bowel Sounds, Tender (In bilateral lower quadrants.) and No Hepatosplenomegaly
Genito-urinary: No Costovertebral Tender
Musculoskeletal: No Clubbing, No Cyanosis and No Edema
Neuro: AO x 3
Psych: Calm
Data Reviewed
-
CT Scan: Report Reviewed by me
Labs: Labs Reviewed by me and Discussed with Physician
[2023-10-11] MEDS: ZOFRAN 4 MG IV (12:25)
--- NOTE | 2023-10-11 13:07 | W.PN.UPDATE ---
Update Note
Progress Note Update
Nonbillable note
I saw and evaluated the patient. I reviewed the resident�s note and agree with findings and plan as documented in the resident�s note.
1. Subacute diarrhea - associated with abd pain/nausea - CT a/p normal - denies previous history of similar problems -stool studies pending including C. difficile -clinically less likely. -stool calproctin test pending- GI evaluation requested
2. Lumbar radiculopathy -MRI L-spine showing degenerative lumbar spinal issue with moderate spinal canal stenosis.
--- NOTE | 2023-10-11 16:40 | CM ---
Reviewed chart, met with patient to obtain information for assessment. Patient lives with son in a single family home with no steps to enter. Patient is independent with all ADLs, personal care, bathing, dressing and ambulates without device. She
can cook, clean, do laundry and other colorist photography, She denied any DME in her home. She drives and can get to her appointments and do all of her own shopping. She has never been to a SNF.
Patient has a prescription plan and uses, [facility] in [place] for all of her medications.
Her PCP is, not listed.
OBS letter provided and signed.
Plan: Case management will continue to follow and assist with discharge planning. She would like to return home when she is medically cleared for discharge.
[2023-10-11] MEDS: LIPITOR 40 MG PO (17:36)
[2023-10-11] MEDS: COMPAZINE 10 MG IV (20:07)
[2023-10-12 05:55] VITALS: BMI 37.9
[2023-10-12] MEDS: NSS 1000 IV (06:02)
[2023-10-12 06:41] LABS: Hematocrit 35.3 % (37.0-47.0); Hemoglobin 12.2 g/dL (12.0-16.0); Mean Corp Hgb Conc. 34.6 g/dL (33.0-37.0); Mean Corpuscular Hgb 33.2 pg (27.0-31.0); Mean Corpuscular Volume 96.2 fL (81.0-99.0); Mean Platelet Volume 10.7 fL (7.4-10.4); Platelet Count 188 10^3/uL (130-400); Red Blood Cell Count 3.67 10^6/uL (4.20-5.40); White Blood Cell Count 5.5 10^3/uL (4.8-10.8)
[2023-10-12 07:08] LABS: Blood Urea Nitrogen 12 mg/dl (7-17); Calcium 7.9 mg/dl (8.4-10.2); Carbon Dioxide 24 mmol/L (22-30); Chloride 110 mmol/L (98-107); Estimated Creatinine Clearance 110 ml/min; Glucose 76 mg/dl (70-99); Potassium 3.5 mmol/L (3.5-5.1); Sodium 139 mmol/L (135-145); eGFR > 60.00
[2023-10-12 07:39] VITALS: BP 135/80
[2023-10-12] MEDS: LOW STRENGTH ASPIRIN 81 MG PO (08:15)
[2023-10-12] MEDS: NEURONTIN 100 MG PO (08:15)
--- NOTE | 2023-10-12 08:36 | W.PN.HOSP.TC ---
Today's Communication/Plan
-
Discharge home if tolerates breakfast
Assessment / Plan
Assessment / Plan
73-year-old female with PMHx significant for obesity, CVA/TIA, anxiety, depression presents to the ER for 3 and half weeks of persistent diarrheal movements-about 10 episodes a day.-Admitted for evaluation of subacute diarrhea
1. Subacute diarrhea - associated with abd pain/nausea - CT a/p normal - denies previous history of similar problems -stool studies pending including C. difficile -clinically less likely. -stool calproctin test pending-no further episodes of
diarrhea overnight. Discussed with GI and patient cleared for discharge today this point.
2. Lumbar radiculopathy -MRI L-spine showing degenerative lumbar spinal issue with moderate spinal canal stenosis. Discussed with patient/son at bedside and would benefit with spinal surgery follow-up outpatient if continues to have symptoms.
Patient to be discharged on Neurontin.
3. HLD -continue home dose of atorvastatin.
4. Anxiety/depression -patient had difficult symptom control with Paxil and was switched to Lamictal 1 month ago although may have caused diarrhea and has been taken off. Continue following up with PCP/psychiatry for further discussion of
different antidepression therapy
DVT prophylaxis-SCD
More than 30 minutes spent in discharge including
Final examination of the patient
Summarizing hospital stay
Instructions for continuing care to all relevant caregivers
Preparation of discharge records, prescriptions, and referral forms
Total time spent (in minutes): 40 mins
Anticipated Discharge: Today
Subjective/Interval History
-
Date of Service: October 12, 2023
Denies of any problems overnight
No nausea or vomiting
Abdominal pain is better
No diarrhea
Objective Data
-
Labs:
Laboratory Results
10/12/23
05:59
WBC 5.5
Hgb 12.2
Hct 35.3 L
Plt Count 188
Sodium 139
Potassium 3.5
Chloride 110 H
Carbon Dioxide 24
BUN 12
Creatinine 0.6
Glucose 76
Calcium 7.9 L
Vital Signs:
Vital Signs
Temp Pulse Resp BP Pulse Ox
98.2 F 70 16 135/80 93
10/12/23 07:39 10/12/23 07:39 10/12/23 07:39 10/12/23 07:39 10/12/23 07:39
I&O
10/11/23 10/12/23 10/13/23
06:59 06:59 06:59
Intake Total 1000 / 1000 2009
Output Total 820 / 820
Balance 1000 / 1000 1190 / 1190
Review of Systems
-
Respiratory: Reports No Symptoms
Cardiac: Reports No Symptoms
Abdomen/GI: Reports No Symptoms
Physical Exam
-
General: Comfortable and Obese
HEENT: Negative Oxygen
Respiratory: Clear to Auscultation
Cardiac: Regular Rhythm and S1/S2; Negative Murmur or Rub
GI: Soft, Nontender, Nondistended and Normal Bowel Sounds
Musculoskeletal: No Edema
Neuro: Awake, Alert, Oriented, No Motor Deficits and Nonfocal/Grossly Intact
Psych: Calm
--- NOTE | 2023-10-12 08:37 | W.PN.GI.CBS2 ---
Today's Communication / Plan
-
OK to MD home
Adv diet
Assessment / Plan
-
Patient is a 73yo F with PMH of depression who was readmitted to ED with lower abdominal pain, single episode of vomiting and diarrhea.
Patient is on BRAT diet. Has not had nausea/ vomiting so far. Her last BM was yesterday 3 pm which was loose and non-bloody. Has not had any BM after that. On P/E, pain seems to be predominantly suprapubic. Patient has been afebrile during stay and
is hemodynamically stable. No leukocytosis. Labs including BMP and UA are unremarkable.
Assessment and plan chronic symptoms of watery diarrhea for the past 4 weeks seems to have started after she started Lamictal and has almost completely resolved since she was weaned off it and has been off the Lamictal past 3 days. Continue low
residue diet as tolerated. Her lower abdominal pain could be related to the diarrhea and possible IBS and also referred pain from her back she does have evidence of spinal stenosis and she was started on gabapentin and pain has improved. If her
symptoms recur may need to rule out microscopic colitis likely from recent medication change and less likely IBD not having bloody stools. Will schedule colonoscopy as outpatient her last colonoscopy was about 10 years ago. Could also consider
starting her on Bentyl. Okay to MD home later today stool studies unable to be performed since she has not had any stool since admission. Will sign off and will be available as needed
Subjective
Subjective
Date of Service: October 12, 2023
Feels much improved no further diarrhea and also abdominal pain and back pain seems to have improved on the gabapentin no nausea or vomiting
Objective
Data Reviewed
Laboratory Data:
Laboratory Results
10/12/23 05:59
10/12/23 05:59
Laboratory Results
Total Bilirubin 0.9 mg/dl (0.2-1.3) 10/10/23 23:42
AST 30 U/L (14-36) 10/10/23 23:42
ALT 25 U/L (0-35) 10/10/23 23:42
Alkaline Phosphatase 72 U/L (38-126) 10/10/23 23:42
Lipase 33 U/L (23-300) 10/10/23 23:42
Vital Signs and I&O:
Vital Signs
Temp Pulse Resp BP Pulse Ox
98.2 F 70 16 135/80 93
10/12/23 07:39 10/12/23 07:39 10/12/23 07:39 10/12/23 07:39 10/12/23 07:39
I&O
10/11/23 10/12/23 10/13/23
06:59 06:59 06:59
Intake Total 1000 / 1000 2009
Output Total 820 / 820
Balance 1000 / 1000 1190 / 1190
Physical Exam
Physical Exam
Cardiology: Normal Sinus Rhythm
Pulmonary: Clear
GI: Soft, Non Distended, Non Tender, Normal Bowel Sounds and Other (Small umbilical hernia noted)
--- NOTE | 2023-10-12 10:57 | CM ---
CM reviewed chart and noted dc order
Bedside meeting with pt and son
VN offered and pt declined
No dc needs- son will transport home
Pt remains OBS- IMM not issued
Discharge Disposition- home no needs- son transport
[2023-10-12 11:15] VITALS: BP 111/58
--- NOTE | 2023-10-13 14:43 | W.DCSUMMARY ---
Discharge Summary
Discharge Data
Date of Admission: 10/11/23
Date of Discharge: 10/12/23
-
Pending Results: No
Hospital Course
Discharging Physician : Dr Nayan Fajardo
Disposition : To home
Primary care physician : Unknown
Principal Discharge diagnosis :
Subacute diarrhea
Lumbar radiculopathy
Chronic Discharge diagnosis :
Hyperlipidemia
Anxiety/depression
Hospital Course :
Patient is a 73-year-old female with mentioned past medical history came to ER for having ongoing diarrhea for 3 weeks. Patient had associated abdominal discomfort nausea and poor appetite. In ER blood workup did not show any acute major
abnormality explaining patient symptoms. Patient had a CT abdomen pelvis which was normal as well. Patient was admitted for further monitoring and stool testing. Stool tests were ordered including cultures/C. difficile and calprotectin all the
patient did not have any further diarrhea. GI evaluated patient and recommended to follow-up in office if continues to have further episodes of diarrhea. Patient may require colonic mucosal biopsy if symptoms persist. Of note patient was recently
started on Lamictal for depression and question of this causing patient diarrhea. Lamictal was discontinued at discharge.
Patient also had significant lower back pain CT abdomen pelvis did not show any major spinal abnormality. Follow-up MRI lumbar spine showed moderate spinal stenosis and foraminal narrowing. Patient recommended to follow-up with spinal surgery in
the office. Patient was failure by physical therapy and was able to ambulate without assistance. Patient was deemed appropriate for home level care.
Important imaging findings :
None
Procedure findings :
None
Discharge Plan
-
Patient Disposition: Home (Routine Discharge)
Discharge Diagnosis/Procedures: Subacute diarrhea, Nausea/vomiting, Lumbar spinal stenosis
Condition: Fair
Diet: Regular
Activity: As tolerated
Driving Restrictions: No driving for 24 hours
Bathing Restrictions: OK to Shower
Activity Restrictions/Additional Instructions:
Follow up with Spinal surgeon of choice to discuss MRI lumbar spine report
Referrals:
Beatriz Brennan MD [Active] -
UNKNOWN - PT DOES,NOT KNOW [Family Provider] -
Additional Discharge Medication Instructions: STOP lamictal
Prescriptions:
New
gabapentin 100 mg capsule
100 mg PO BID Qty: 60 0RF
Continued
ascorbic acid (vitamin C) [Vitamin C] 1,000 MG tablet
1,000 mg PO DAILY
cyanocobalamin (vitamin B-12) 1,000 MCG tablet
1,000 mcg PO DAILY
docosahexaenoic acid-epa 1 EACH capsule
1,200 mg PO DAILY
zolpidem 10 MG tablet
10 mg PO HS
calcium carbonate-vitamin D3 [Calcium 600 + D(3)] 1 EACH tablet
1 ea PO DAILY
atorvastatin 40 MG tablet
40 mg PO QPM Qty: 30 0RF
aspirin 81 MG tablet,chewable
81 mg PO DAILY 0RF
Discontinued
lamotrigine 100 mg Tablet
100 mg PO DAILY
Discharge Orders:
Discharge Patient (As Directed); Ordered 10/12/23
Ordered By: Nayan Fajardo
Discharge Date and Time
Discharge Date/Time: 10/12/23 12:23
Print Language: BURKINAN
== END 2023-10-12 12:23 | disposition home or self-care (01) ==
LOC: 2 NORTH 02:26
PROVIDERS: Student in an Organized Health Care Education/Training Program; ADMITTING PHYSICIAN Hospitalist; ATTENDING PHYSICIAN Hospitalist; CONSULT PHYSICIAN Internal Medicine Gastroenterology; EMERGENCY PHYSICIAN Emergency Medicine
DX: R19.7 Diarrhea, unspecified (principal); M54.16 Radiculopathy, lumbar region; M48.061 Spinal stenosis, lumbar region without neurogenic claudication; R11.2 Nausea with vomiting, unspecified; R10.2 Pelvic and perineal pain; R10.9 Unspecified abdominal pain; F32.A Depression, unspecified; E78.00 Pure hypercholesterolemia, unspecified; I25.10 Atherosclerotic heart disease of native coronary artery without angina pectoris; R63.0 Anorexia; M43.27 Fusion of spine, lumbosacral region; F41.9 Anxiety disorder, unspecified; E87.8 Other disorders of electrolyte and fluid balance, not elsewhere classified; E66.9 Obesity, unspecified; Z68.37 Body mass index [BMI] 37.0-37.9, adult; Z86.73 Personal history of transient ischemic attack (TIA), and cerebral infarction without residual deficits; Z11.52 Encounter for screening for COVID-19; Z87.11 Personal history of peptic ulcer disease; Z96.651 Presence of right artificial knee joint; Z90.49 Acquired absence of other specified parts of digestive tract; Z88.0 Allergy status to penicillin; Z79.82 Long term (current) use of aspirin; Z83.79 Family history of other diseases of the digestive system
CPT/HCPCS: 72148; 74177; 80048; 80053; 81003; 83690; 84443; 85025; 85027; 87811; 96361; 96374; 96375; 97162; 97165; 99285; G0378; Q9967

== ENCOUNTER → 2024-03-23 12:15 | Outpatient (REF) | payer MEDICARE, SELFPAY | LOC: WDC 12:15 | PROVIDERS: ATTENDING PHYSICIAN Nurse Practitioner Adult Health | DX: Z12.31 Encounter for screening mammogram for malignant neoplasm of breast (principal) | CPT/HCPCS: 77063; 77067 ==

== ENCOUNTER 2024-07-27 15:11 | Emergency (ER) | payer MEDICARE, SELFPAY ==
[2024-07-27 15:32] VITALS: BP 136/91
[2024-07-27 17:30] VITALS: BP 133/77
[2024-07-27 19:08] LABS: % Basophils 0.9 % (0-2); % Eosinophils 3.7 % (0-6); % Immature Granulocytes 0.2 % (0-0.5); % Lymphocytes 29.6 % (20.5-51.1); % Monocytes 9.5 % (1.7-9.3); % Neutrophils 56.1 % (42.2-75.2); Absolute Basophils 0.1 10^3/uL (0-0.2); Absolute Eosinophils 0.2 10^3/uL (0-0.7); Absolute Lymphocytes 1.9 10^3/uL (1.2-3.4); Absolute Monocytes 0.6 10^3/uL (0.1-0.6); Absolute Neutrophils 3.7 10^3/uL (1.4-6.5); Hematocrit 42.9 % (37.0-47.0); Hemoglobin 14.3 g/dL (12.0-16.0); Mean Corp Hgb Conc. 33.3 g/dL (33.0-37.0); Mean Platelet Volume 10.1 fL (7.4-10.4); Nucleated Red Blood Cells % 0 %; Platelet Count 252 10^3/uL (130-400); Red Blood Cell Count 4.47 10^6/uL (4.20-5.40); Red Cell Dist. Width 13.1 % (11.5-14.5); White Blood Cell Count 6.5 10^3/uL (4.8-10.8)
[2024-07-27 19:36] LABS: Erythrocyte Sed Rate 17 mm/hour (0-20)
[2024-07-27 19:39] LABS: ALT (SGPT) 32 U/L (0-35); AST (SGOT) 28 U/L (14-36); Albumin 4.4 g/dl (3.5-5.0); Alkaline Phosphatase 77 U/L (38-126); Blood Urea Nitrogen 19 mg/dl (7-17); Calcium 9.2 mg/dl (8.4-10.2); Carbon Dioxide 22 mmol/L (22-30); Chloride 112 mmol/L (98-107); Glucose 88 mg/dl (70-99); Potassium 4.3 mmol/L (3.5-5.1); Sodium 140 mmol/L (135-145); Total Bilirubin 0.8 mg/dl (0.2-1.3); eGFR > 60.00
--- NOTE | 2024-07-27 23:05 | ED.GENMED ---
History of Present Illness
General
Chief Complaint: Eye Problems
Source: patient
Exam Limitations: none
Time Seen by Provider: 07/27/24 16:29
Nursing documentation reviewed up to this point in time: agreed with
History of Present Illness
History of Present Illness:
Patient to ED with complaint of deleon arc in left lateral peripheral vision. Symptoms started this AM. Reports sensation that her eye (globe) is becoming larger and soon she will not be able to close her eye. SHe denies any pain. Denies
fever/chills, recent illness. No history of trauma. PMH bilateral cataract surgery many years ago, no other eye procedures. Last comprehensive exam was 01/25. Brought to ED by family for eval
Past History
Past History
ED Past Medical History: None and Other (Previous Lyme's disease)
ED Past Surgical History: None
Social History
Tobacco: Non-smoker
Alcohol: None
Family History
Family History: Negative Diabetes
Review of Systems
Review of Systems
Allergies reviewed?: Yes
All Other Systems: ROS reviewed and negative except as documented in HPI and ROS
Constitutional: Reports no symptoms
EENT: Reports other (deleon arc in left eye lateral vision)
Respiratory: Reports no symptoms
Cardiac: Reports no symptoms
ABD/GI: Reports no symptoms
: Reports no symptoms
Musculoskeletal: Reports no symptoms
Skin: Reports no symptoms
Neurological: Reports no symptoms
Psychiatric: Reports no symptoms
Phy Exam
General Physical Exam
General Presentation: well appearing and mild distress
General age: appears stated age
General Skin: warm and dry
General Habitus: normal
General Mental: alert
Eye Exam
Eye Exam: PERRL, EOMI, conjunctiva normal, disc sharp and globe normal
Able to obtain acuity?: Yes
Right 20/: 30
Left 20/: 40
Both 20/: 25
Refraction?: Yes
Eye Exam General: PERRL: bilateral and EOM intact: bilateral
Conjunctival Changes: bilateral: none
Retinal Exam: not visualized: Left
Neurological Exam
Neurological Exam: alert, oriented x3, CN II-XII intact, no motor deficits, no sensory deficits, speech normal and normal gait
Cranial
Cranial Nerves: normal and no facial asymetry
EOM (CN3/4/6): intact and other (No nystagmus)
Musculoskeletal Exam
Musculoskeletal Exam: full ROM
Skin Exam
Skin Exam: normal color, warm/dry and no rash
Psychiatric Exam
Psychiatric Exam: normal mood/affect
Course
Orders/Labs/Results
Orders:
Orders
07/27/24 16:37
Tetracaine HCl [Tetracaine 0.5% Ophthalmic Solution] 1 drop .ROUTE .[facility]
07/27/24 16:58
CT Head W/o Iv Contrast Urgent
Comment:
Reason For Exam: vision changes
07/27/24 18:53
CRP [C-Reactive Protein] Urgent
Complete Blood Count/With Diff Urgent
Comprehensive Metabolic Panel Urgent
Sed Rate [Erythrocyte Sed Rate] Urgent
Abnormal Lab Results
07/27/24
18:53
MCH 32.0 H pg
(27.0-31.0)
Monocytes % 9.5 H %
(1.7-9.3)
Chloride 112 H mmol/L
(98-107)
BUN 19 H mg/dl
(7-17)
07/27/24 18:53
07/27/24 18:53
Vital Signs
Initial and Last Documented VS:
Initial Vital Signs
Temp Pulse Resp BP Pulse Ox
98.2 F 91 16 136/91 98
07/27/24 15:32 07/27/24 15:32 07/27/24 15:32 07/27/24 15:32 07/27/24 15:32
Last Documented Vital Signs
Temp Pulse Resp BP Pulse Ox
98.2 F 74 16 133/77 98
07/27/24 15:32 07/27/24 17:34 07/27/24 17:34 07/27/24 17:30 07/27/24 17:30
*Radiology
Radiology exam reviewed: radiology read reviewed
*Pulse Oximetry
Patient hypoxic: no
*Critical Care Note
Total Time (30-74mins, 75-104mins- exclusive of procedures): Not Applicable
Update Note
Update Note:
Patient to ED wt complaint of deleon expanding arc in left lateral vision. States arc is expanding. No associated pain ( eye or head). No skin rash Neuro exam is unremarkable. PERRL EOMI. Visual acquity completed. L20/40, R 20/30, bilateral
20/25 with correction. Tonopen L22, R 21. Nondialted exam completed. Optic disc is sharp. Unable to evaluate retina. Case discussed with Dr. Burger who requested sed rate and crp - both normal. SHe will follow up with patient in AM for
comprehensive exam. Patient is agreeable to plan.SHe is discharged home.
ED Attending Note
-
Portions of this chart may have been created with voice recognition software.� Occasional wrong word or��sound alike� substitutions may have occurred due to the inherent limitations of voice recognition software.
Discharge Plan
Departure
Patient Disposition: Home (Routine Discharge)
Date of Disposition: 07/27/24
Time of Disposition: 19:38
Patient with high blood pressure during this ER visit?: No
Condition: Good
Covid-19: Not Applicable
Discharge Problem:
Change in vision
Instructions: Detached retina
Prescriptions:
No Action
ascorbic acid (vitamin C) [Vitamin C] 1,000 MG tablet
1,000 mg PO DAILY
cyanocobalamin (vitamin B-12) 1,000 MCG tablet
1,000 mcg PO DAILY
docosahexaenoic acid-epa 1 EACH capsule
1,200 mg PO DAILY
zolpidem 10 MG tablet
10 mg PO HS
calcium carbonate-vitamin D3 [Calcium 600 + D(3)] 1 EACH tablet
1 ea PO DAILY
atorvastatin 40 MG tablet
40 mg PO QPM Qty: 30 0RF
aspirin 81 MG tablet,chewable
81 mg PO DAILY 0RF
gabapentin 100 mg capsule
100 mg PO BID Qty: 60 0RF
Referrals:
Priscilla Burger MD [Active] - Tomorrow
Dana Simon CRNP [Family Provider] -
Activity Restrictions/Additional Instructions:
Call the office of Dr. Burger in the AM for your appointment time.
Interventions
Interventions:
*Risk Screen - Suicide Last Done: 07/27/24 15:32
*General Assessment Last Done: 07/27/24 17:34
*Neglect/Abuse Screening Last Done: 07/27/24 15:32
*ED- Fall Risk Assessment Last Done: 07/27/24 17:34
*ED COVID-19 Vaccine History Last Done: 07/27/24 17:34
*Nursing Disposition Last Done: 07/27/24 19:50
Discharge Date and Time
Discharge Date/Time: 07/27/24 19:54
Print Language: FRENCH
== END 2024-07-27 19:54 | disposition home or self-care (01) ==
LOC: EMR 15:11
PROVIDERS: Nurse Practitioner; EMERGENCY PHYSICIAN Emergency Medicine; FAMILY PHYSICIAN Nurse Practitioner Adult Health
DX: H53.8 Other visual disturbances (principal)
CPT/HCPCS: 99285; 70450; 80053; 85025; 85652; 86140